=== PATIENT | female | born 1945 | race Caucasian/White ===

== ENCOUNTER 2019-04-01 09:36 | Outpatient (CLI) | payer MEDICARE ==
--- NOTE | 2019-04-01 10:39 | MRI ---
Exam: MRI cervical spine without contrast HISTORY: Cervical radiculopathy. Cervical pain and stiffness x3.5 years.. COMPARISON: 09/11/2015; 04/06/2018 at the [facility] FINDINGS: Appropriate T1 marrow signal intensity of the cervical vertebra. Cervical spine vertebral body heigh t is maintained. No fracture. No significant STIR hyperintensity to suggest vertebral body edema or ligamentous injury Visualized brain parenchyma, cervicomedullary junction, cervical cord and the upper thoracic cord hav e a normal size and signal intensity. C2-C3: Central disc protrusion effaces the midline subarachnoid space. There is contact upon the midl ine cervical cord, without cord signal abnormality. Stable mild central canal stenosis. Bilaterally the neural foramina are patent C3-C4: Central disc protrusion effaces the midline subarachnoid space. There is contact upon the midl ine cervical cord, without cord signal hyperintensity. Stable mild central canal stenosis. Bilaterally the neural foramina are patent. C4-C5: Broad-based disc osteophyte complex effaces the ventral subarachnoid space. Minimal contact up on the cervical cord without cord signal abnormality. Mild central canal stenosis. Moderate bilateral neural foraminal narrowing due to uncovertebral hypertrophy. C5-C6: Broad-based disc osteophyte complex with a central component. Subarachnoid space is effaced. T here is deformity of the central and left aspect of the cervical or. Moderate central canal stenosis. No cord hyperintensity. Moderate bilateral neural foraminal narrowing due to uncovertebral hypertrophy. C6-C7: Broad-based disc osteophyte complex effaces subarachnoid space. Mild deformity the cervical co rd, without cord hyperintensity. Moderate central canal stenosis. Moderate right and left foraminal narrowing due to uncovertebral hypertrophy C7-T1: No significant central canal stenosis or significant neural foraminal narrowing IMPRESSION: Multilevel degenerative disease cervical spine as described above. Compared to the previous examinat ion, the degree of central canal stenosis and neural foraminal narrowing are essentially similar.
--- NOTE | 2019-04-01 11:27 | MRI ---
MRI LUMBAR SPINE NONCONTRAST: HISTORY: Lumbar spondylolisthesis. Chronic low back pain x3.5 years. Numbness and tingling in the right leg. COMPARISON: 03/18/2012. FINDINGS: Appropriate T1 marrow signal intensity of the lumbar vertebra. Lumbar spine vertebral body height is maintained. No fracture. No significant STIR hyperintensity to suggest vertebral body edema or ligamentous injury. There does appear to be STIR hyperintensity involving the left pedicle at L5 and possibly S1. There also appears be STIR hyperintensity involving the right pedicle at L4. Abnormal signal intensity of the pedicles is similar to the previous examination at L5 but appears to have pro gressed at L4 and S1. Edema likely due to mechanical stresses. Appropriate signal intensity of the paraspinal muscles. Multiple T2 hyperintensities in the renal cortices compatible with cortical cysts. Conus medullaris terminates at the mid L1 level. Spondylolisthesis: 4.2 mm of anterolisthesis of L4 upon L5 without associated spondylolysis. T12-L1:No significant central canal stenosis or significant neural foraminal narrowing. L1-L2:No significant posterior disc abnormality. No significant central canal stenosis or significant neural foraminal narrowing. L2-L3:Adequate disc hydration. No significant posterior disc abnormality. No significant central grover l stenosis or significant neural foraminal narrowing. L3-L4:Adequate disc hydration. Left and right paracentral disc bulges along with ligamentum flavum th ickening and facet hypertrophy result in mild central canal stenosis. Moderate right foraminal narrowing. Left neural foramen is patent. L4-L5:Adequate disc hydration. Broad-based disc bulge, ligament flavum thickening and facet hypertrop hy result in moderate central canal stenosis. Bilaterally, neural foramina are patent. L5-S1:Adequate disc hydration. No significant posterior disc abdomen body. Ligament flavum thickening and facet hypertrophy are present. No significant central canal stenosis. Mild bilateral neural foraminal narrowing. IMPRESSION: 1. Degenerative changes lumbar spine as described above. 2. Grade 1 anterolisthesis of L4 upon L5. 3. Edematous change in the pedicles at L4, L5 and S1 likely representing changes from stress reaction due to degenerative change. Transcribed Date/Time: 04/01/2019 12:31 PM
--- NOTE | 2019-04-01 12:38 | RAD ---
FOUR VIEWS OF THE LUMBAR SPINE: DATE: 04/01/2019. COMPARISON: None. HISTORY: Lumbar spondylolisthesis, back pain. FINDINGS: Frontal imaging demonstrates intact pedicles throughout the lumbar spine. The neutral lateral exam d emonstrates multilevel facet hypertrophy at L3-4, L4-5, and L5-S1. There is anterolisthesis on the n eutral imaging at L4-5 measuring approximately 8 mm. On flexion imaging, the anterolisthesis at L4-5 measures 9-10 mm and on extension imaging the anterolisthesis at L4-5 measures approximately 5 mm. No acute fracture is seen. IMPRESSION: Multilevel lower lumbar spine degenerative change. There is anterolisthesis of L4 on L5 measuring up to 9-10 mm upon flexion. POS: OFF
== END 2019-04-01 09:37 | disposition home or self-care (01) ==
LOC: BICMRI 09:36
PROVIDERS: ATTEND Neurological Surgery
DX: M43.16 Spondylolisthesis, lumbar region (principal); M47.816 Spondylosis without myelopathy or radiculopathy, lumbar region; M50.10 Cervical disc disorder with radiculopathy, unspecified cervical region; M48.02 Spinal stenosis, cervical region
CPT/HCPCS: 72120; 72141; 72148

== ENCOUNTER 2019-05-03 05:56 | Inpatient (IN) | payer MEDICARE ==
[2019-05-02 12:24] VITALS: BMI 30.7
[2019-05-03] MEDS ORDERED: Sodium Chloride 0.9% 10 ML ONE (06:26)
[2019-05-03] MEDS ORDERED: Fentanyl 100 MCG/2 ML VIAL ONE ×4 (06:40→09:52)
[2019-05-03 06:42] LABS: Hemoglobin 13.9 g/dL (12.0-16.0); Mean Corpuscular HGB CONC 33.3 g/dL (32.0-36.0); Mean Corpuscular Hemoglobin 30.4 pg (27.0-31.0); Mean Corpuscular Volume 91.2 fL (78.0-98.0); Mean Platelet Volume 7.7 fL (7.4-10.4); Platelet Count 272 thou/uL (130-400); RBC Distribution Width 12.2 % (11.5-14.5); Red Blood Cell (RBC) Count 4.58 mill/uL (4.20-5.40)
[2019-05-03 07:01] LABS: Anion Gap 11 mmol/L (10-20); BUN (Urea Nitrogen) 15 mg/dL (9.8-20.1); Calc. Creatinine Clearance 80 mL/min (70-130); Calcium 9.2 mg/dL (7.8-10.44); Carbon Dioxide 26 mmol/L (23-31); Chloride 106 mmol/L (98-107); Estimated GFR-MDRD 66; Glucose 110 mg/dL (83-110); Potassium 4.1 mmol/L (3.5-5.1); Sodium 139 mmol/L (136-145)
[2019-05-03] MEDS ORDERED: HYDROmorphone 2 MG/ML VIAL ONE (08:34)
[2019-05-03] MEDS ORDERED: HYDROmorphone 2 MG/ML VIAL SLOW IVP PRN (08:43)
[2019-05-03] MEDS ORDERED: Morphine Sulfate 2 MG/ML SYRINGE SLOW IVP PRN (08:43)
[2019-05-03] MEDS ORDERED: Ondansetron HCl/PF 4 MG/2 ML Vial IVP PRN (08:43)
[2019-05-03] MEDS ORDERED: Promethazine HCl 25 MG/ML VIAL IM PRN ×2 (08:43→16:45)
[2019-05-03] MEDS ORDERED: Promethazine HCl 25 MG/ML VIAL SLOW IVP PRN (08:43)
[2019-05-03] MEDS ORDERED: Meperidine HCl/PF 25 MG/ML VIAL SLOW IVP PRN (08:43)
[2019-05-03] MEDS ORDERED: PACU-Morphine 4MG/ML VIAL SLOW IVP PRN (08:43)
[2019-05-03] MEDS ORDERED: HYDROmorphone 0.5 MG/0.5 ML SYRINGE ONE (10:10)
[2019-05-03] MEDS ORDERED: tiZANidine HCl 4 MG TAB PO PRN (11:57)
[2019-05-03] MEDS ORDERED: HYDROcodone/Acetaminophen 7.5/325 mg Tablet PO PRN (11:58)
[2019-05-03] MEDS ORDERED: traMADol HCl 50 MG TAB PO PRN ×3 (11:59→16:45)
--- NOTE | 2019-05-03 14:45 | OP ---
DATE OF PROCEDURE: 05/03/2019 CATEGORY DIRECTOR: Jacqui Camacho PA-C. PROCEDURES PERFORMED: Posterior lumbar laminectomy L4-L5, posterolateral arthrodesis, pedicle screw instrumentation, demineralized bone matrix, and local morselized autograft L4-L5. DESCRIPTION OF PROCEDURE: The patient was brought to the operating room and intubated. She was rolled in a prone position on gel-filled chest rolls. An incision was made exposing L4-L5 and the level was confirmed by x-ray. We performed modest bilateral L4-L5 laminectomies. Next, we placed pedicle screws at L4 and L5 bilaterally using lateral fluoroscopic guidance and the position was confirmed with rotational x-ray. The enrrique was then secured between the screws, connected by nuts, which were final tightened. The wound was then extensively irrigated. MAC hemostasis was secured. A combination of demineralized bone matrix and local morselized autograft was laid over the lamina and posterolateral surfaces for the purpose of arthrodesis. Vancomycin powder was applied, and the wound was then closed in anatomic layers. Job ID: [id number]
[2019-05-03] MEDS ORDERED: diphenhydrAMINE 50 MG/ML VIAL IVP PRN (16:45)
[2019-05-03] MEDS ORDERED: Morphine 4 MG/ML VIAL SLOW IVP PRN (16:45)
[2019-05-03] MEDS ORDERED: Promethazine HCl 12.5 MG SUPP PR PRN (16:45)
[2019-05-03] MEDS ORDERED: HYDROcodone/Acetaminophen 10/325 mg Tablet PO PRN (16:45)
[2019-05-03] MEDS ORDERED: Mag-Al 1200 mg/1200 mg/30 ML UDCUP PO PRN (16:45)
[2019-05-03] MEDS ORDERED: Milk Of Magnesia 30 ML UDCUP PO PRN (16:45)
[2019-05-03] MEDS ORDERED: diphenhydrAMINE 25 MG CAP PO PRN (16:45)
[2019-05-03] MEDS ORDERED: Promethazine 25 MG TAB PO PRN (16:45)
[2019-05-03] MEDS ORDERED: Morphine 2 MG/ML SYRINGE SLOW IVP PRN (16:48)
[2019-05-03] MEDS ORDERED: Ondansetron PF 4 MG/2 ML Vial SLOW IVP PRN (16:49)
[2019-05-03] MEDS: CEFAZOLIN 2 GM in Premix Bag 1 BAG IVPB SCH (17:54)
[2019-05-03] MEDS: tiZANidine HCl 4 MG TAB PO PRN (19:16)
[2019-05-03] MEDS: HYDROcodone/Acetaminophen 10/325 mg Tablet PO PRN (19:34)
[2019-05-03] MEDS ORDERED: DULoxetine 60 MG CAP PO SCH (21:00)
[2019-05-04] MEDS: CEFAZOLIN 2 GM in Premix Bag 1 BAG IVPB SCH (01:44)
[2019-05-04] MEDS: HYDROcodone/Acetaminophen 10/325 mg Tablet PO PRN ×2 (02:34→06:31)
[2019-05-04] MEDS: tiZANidine HCl 4 MG TAB PO PRN (06:31)
[2019-05-04 08:03] VITALS: BP 145/65; TEMP 99.1
[2019-05-04] MEDS ORDERED: Atenolol 25 MG TAB PO SCH (09:00)
[2019-05-04] MEDS ORDERED: Calcium Carbonate 500 MG TAB PO SCH (09:00)
[2019-05-04] MEDS ORDERED: Citalopram 20 MG TAB PO SCH (09:00)
--- NOTE | 2019-05-04 15:12 | DIS ---
DATE OF ADMISSION: 05/03/2019 DATE OF DISCHARGE: 05/04/2019 HISTORY AND HOSPITAL COURSE: The patient is a 73-year-old female, recently evaluated in our office for progressive back pain and claudicatory symptoms. The patient was found to have significant stenosis at L4-L5 and underwent L4-L5 decompression and fusion on 05/03/2019. Following the surgery, she was transitioned to the Med/Surg floor, where pain has been well controlled with p.o. medications. She is tolerating regular diet, and she is voiding appropriately. She has been ambulating short distance back and forth to the bathroom and in the halls. The patient is sitting up comfortably, awake, alert, in no acute distress. She has free active range of motion of all extremities. No focal motor weakness. Her incision is clean, dry, and intact. We will plan to dismiss the patient to home. I have advised her to hold her aspirin x2 weeks. She has been provided scripts for [place], Zanaflex, and Keflex. We will follow up in 2 weeks, provided instructions for home. Job ID: [id number]
== END 2019-05-04 09:31 | disposition home or self-care (01) | DRG 460 ==
LOC: SURG A 05:56 → 3SE 11:35 → EDSTATUS 16:15
PROVIDERS: ADMIT Neurological Surgery; ATTEND Neurological Surgery
PROC: 0SG0071 Fusion of Lumbar Vertebral Joint with Autologous Tissue Substitute, Posterior Approach, Posterior Column, Open Approach (ICD-10-PCS; principal; 2019-05-03)
DX: M48.061 Spinal stenosis, lumbar region without neurogenic claudication (principal); Z79.82 Long term (current) use of aspirin; Z79.899 Other long term (current) drug therapy
CPT/HCPCS: 36415; 76000; 80048; 85027; 93005; 93010; J0690; J1170; J2270; J3010; J3370; J3490

== ENCOUNTER 2019-05-17 14:50 | Outpatient (CLI) | payer MEDICARE ==
--- NOTE | 2019-05-17 15:29 | RAD ---
Exam: 2 views lumbar spine HISTORY: Spinal listhesis at L4-L5. Status post fusion surgery COMPARISON: 04/01/2019 FINDINGS: Interval placement of bilateral transpedicular screws at L4 and L5. No perihardware lucency. 5.6 mm of anterolisthesis of L4 upon L5. No additional levels of spondylolisthesis. Stable Emmanuelle change at L3-L4 IMPRESSION: Grade 1 anterolisthesis of L4 upon L5. The degree of anterolisthesis has not increased si nce the previous examination. There is evidence of fusion at the L4-L5 level.
== END 2019-05-17 14:51 | disposition home or self-care (01) ==
LOC: TBSIIMAG 14:50
PROVIDERS: ATTEND Neurological Surgery
DX: M43.16 Spondylolisthesis, lumbar region (principal); Z98.1 Arthrodesis status
CPT/HCPCS: 72100

== ENCOUNTER 2019-06-28 12:14 | Outpatient (CLI) | payer MEDICARE ==
--- NOTE | 2019-06-28 13:23 | RAD ---
XR Lumbar Spine 2 Or 3 View History: Lumbar spondylolisthesis M a 43.16 Comparison: None. Findings: Posterior spinal fusion hardware and interconnecting rods at L4-L5. Listhesis has not joyner ed. No acute fracture or malalignment. Moderate L3/L4 degenerative disc space narrowing. Mild L2/L3 degen erative disc narrowing. Moderate sclerosis of the SI joints. Impression: Similar examination of the lumbar spine. No acute abnormality.
== END 2019-06-28 12:15 | disposition home or self-care (01) ==
LOC: BICRAD 12:14
PROVIDERS: ATTEND Neurological Surgery
DX: M43.16 Spondylolisthesis, lumbar region (principal)
CPT/HCPCS: 72100

== ENCOUNTER 2019-07-25 08:32 | Observation (INO) | payer MEDICARE ==
[2019-07-22 11:38] VITALS: BMI 29.9
[2019-07-25] MEDS ORDERED: Ondansetron PF 4 MG/2 ML Vial ONE (09:43)
[2019-07-25] MEDS ORDERED: Glycopyrrolate 0.2 MG/ML 5 ML SYRINGE ONE (09:43)
[2019-07-25] MEDS ORDERED: Lidocaine 1% PF 5 ML VIAL ONE (09:43)
[2019-07-25] MEDS ORDERED: PROPOFOL 200 MG/20 ML VIAL ONE (09:43)
[2019-07-25] MEDS ORDERED: Rocuronium Bromide 10 MG/ML (10ML VIAL) ONE (09:43)
[2019-07-25 10:21] LABS: Hemoglobin 14.2 g/dL (12.0-16.0); Mean Corpuscular HGB CONC 32.6 g/dL (32.0-36.0); Mean Corpuscular Hemoglobin 29.9 pg (27.0-31.0); Mean Corpuscular Volume 91.7 fL (78.0-98.0); Mean Platelet Volume 7.7 fL (7.4-10.4); Platelet Count 351 thou/uL (130-400); RBC Distribution Width 12.7 % (11.5-14.5); Red Blood Cell (RBC) Count 4.75 mill/uL (4.20-5.40); White Blood Cell (WBC) Count 15.9 thou/uL (4.8-10.8)
[2019-07-25 10:25] LABS: Anion Gap 14 mmol/L (10-20); BUN (Urea Nitrogen) 13 mg/dL (9.8-20.1); Calc. Creatinine Clearance 94 mL/min (70-130); Calcium 9.5 mg/dL (7.8-10.44); Carbon Dioxide 28 mmol/L (23-31); Chloride 104 mmol/L (98-107); Estimated GFR-MDRD 81; Glucose 96 mg/dL (83-110); Potassium 4.2 mmol/L (3.5-5.1); Sodium 142 mmol/L (136-145)
[2019-07-25] MEDS ORDERED: Fentanyl 100 MCG/2 ML VIAL ONE ×5 (10:26→16:57)
[2019-07-25] MEDS ORDERED: Sodium Chloride 0.9% 10 ML ONE (11:32)
[2019-07-25] MEDS ORDERED: Lidocaine 2% Jelly 5 ML TUBE ONE (12:06)
--- NOTE | 2019-07-25 12:16 | OP ---
DATE OF PROCEDURE: 07/25/2019 SENIOR SPECIALIST: Jacqui Camacho PA-C PROCEDURES PERFORMED: Anterior cervical diskectomy C5-C6 and C6-C7, interbody arthrodesis, intervertebral biomechanical device, local morselized autograft, demineralized bone matrix, anterior titanium instrumentation C5 through C7. DESCRIPTION OF PROCEDURE: The patient was brought to the operating room and intubated. She was positioned supine with head in modest extension on a gel-filled donut. An incision was made in the right precervical area and dissected medial to the sternocleidomastoid muscle, identified the anterior cervical spinal, and the level was confirmed by x-ray. We debrided the anterior osteophytes, placed distraction across the disk spaces, and found the bones to be extremely soft. We performed diskectomies at C5-C6 and C6-C7. The bony endplates were then decorticated for the purpose of arthrodesis and appropriate-sized intervertebral biomechanical PEEK device was brought into the field, filled with demineralized bone matrix and local morselized autograft, and tapped in place securely at C5-C6 and C6-C7. Next, an anterior plate was brought into the field and secured to C5, C6, and C7 using two 14-mm screws at each level. The wound was then extensively irrigated and MAC hemostasis was secured. The wound was closed in anatomic layers over drain. Job ID: [id number]
[2019-07-25] MEDS ORDERED: HYDROcodone/Acetaminophen 10/325 mg Tablet PO PRN (14:06)
[2019-07-25] MEDS ORDERED: traMADol HCl 50 MG TAB PO PRN ×2 (14:06)
[2019-07-25] MEDS ORDERED: Promethazine 25 MG TAB PO PRN (14:06)
[2019-07-25] MEDS ORDERED: tiZANidine HCl 4 MG TAB PO PRN (14:06)
[2019-07-25] MEDS ORDERED: Milk Of Magnesia 30 ML UDCUP PO PRN (14:06)
[2019-07-25] MEDS ORDERED: Promethazine HCl 12.5 MG SUPP PR PRN (14:06)
[2019-07-25] MEDS ORDERED: Promethazine HCl 25 MG/ML VIAL IM PRN (14:06)
[2019-07-25] MEDS ORDERED: Morphine 4 MG/ML VIAL SLOW IVP PRN (14:06)
[2019-07-25] MEDS ORDERED: diphenhydrAMINE 50 MG/ML VIAL IVP PRN (14:06)
[2019-07-25] MEDS ORDERED: diphenhydrAMINE 25 MG CAP PO PRN (14:06)
[2019-07-25] MEDS ORDERED: Mag-Al 1200 mg/1200 mg/30 ML UDCUP PO PRN (14:06)
[2019-07-25] MEDS ORDERED: Morphine 2 MG/ML SYRINGE SLOW IVP PRN (14:06)
[2019-07-25] MEDS ORDERED: Ondansetron PF 4 MG/2 ML Vial IVP PRN (14:06)
[2019-07-25] MEDS: Sodium Chloride 0.9% 1,000 ML IV SCH (18:04)
[2019-07-25] MEDS: HYDROcodone/Acetaminophen 10/325 mg Tablet PO PRN (19:59)
[2019-07-25] MEDS ORDERED: DULoxetine 60 MG CAP PO SCH (21:00)
[2019-07-25] MEDS: CEFAZOLIN 2 GM in Premix Bag 1 BAG IVPB SCH (22:23)
[2019-07-26] MEDS: HYDROcodone/Acetaminophen 10/325 mg Tablet PO PRN ×2 (04:22→08:29)
[2019-07-26] MEDS: Sodium Chloride 0.9% 1,000 ML IV SCH (04:23)
[2019-07-26] MEDS: CEFAZOLIN 2 GM in Premix Bag 1 BAG IVPB SCH (05:34)
[2019-07-26] MEDS ORDERED: Tamsulosin HCl 0.4 MG CAP PO SCH (06:00)
[2019-07-26 07:19] VITALS: BP 151/68; TEMP 98.7
[2019-07-26] MEDS ORDERED: Multivit, Therapeutic 1 TAB PO SCH (09:00)
[2019-07-26] MEDS ORDERED: Calcium Carbonate 500 MG TAB PO SCH (09:00)
[2019-07-26] MEDS ORDERED: Atenolol 25 MG TAB PO SCH (09:00)
[2019-07-26] MEDS ORDERED: Citalopram 20 MG TAB PO SCH (09:00)
[2019-07-26] MEDS ORDERED: Prevnar 13-Val Conj/PF 0.5 ML SYRINGE IM ONE (09:00)
--- NOTE | 2019-07-26 10:29 | DIS ---
DATE OF ADMISSION: 07/25/2019 DATE OF DISCHARGE: 07/26/2019 HOSPITAL COURSE: The patient is a 73-year-old female, recently evaluated in our office for progressive neck pain, found to have significant degenerative changes from C5 to C7. She underwent C5 through C7 ACDF on 07/25/2018. Following the surgery, she was transitioned to the Med/Surg floor, where her pain has been well controlled with p.o. medications, she has been tolerating a regular diet, and she has been voiding appropriately. She has been ambulating easily back and forth to the bathroom. Her incision has remained clean, dry, and intact. She did have a ASHVIN drain placed intraoperatively with only 10 mL out overnight. This was removed on postoperative day #1. Exam on postoperative day #1, the patient is resting comfortably. No acute distress. Her incision is clean, dry, and intact. She has free active range of motion of all extremities. No focal motor weakness. There is a small amount of serosanguineous fluid in the ASHVIN bulb. We will plan to remove her ASHVIN drain and dismiss to home. I have discussed home care precautions. We will follow up with the patient in 2 weeks. Job ID: [id number]
--- NOTE | 2019-07-26 11:07 | EKG ---
Test Reason : PREOP Blood Pressure : / mmHG Vent. Rate : 058 BPM Atrial Rate : 058 BPM P-R Int : 176 ms QRS Dur : 082 ms QT Int : 444 ms P-R-T Axes : 063 -11 046 degrees QTc Int : 435 ms Sinus bradycardia Septal infarct , age undetermined Abnormal ECG When compared with ECG of 03-MAY-2019 06:48, No significant change was found Confirmed by DR. Umm SCHUMACHER ([id number]) on 07/26/2019 11:06:39 AM Referred By: SARAH Confirmed By:DR. Umm SCHUMACHER
== END 2019-07-26 09:45 | disposition home or self-care (01) ==
LOC: SDC 08:32 → SURG A 17:24
PROVIDERS: ADMIT Neurological Surgery; ATTEND Neurological Surgery
PROC: 0RG20A0 Fusion of 2 or more Cervical Vertebral Joints with Interbody Fusion Device, Anterior Approach, Anterior Column, Open Approach (ICD-10-PCS; principal; 2019-07-25)
PROC: 0RT30ZZ Resection of Cervical Vertebral Disc, Open Approach (ICD-10-PCS; 2019-07-25)
DX: M47.22 Other spondylosis with radiculopathy, cervical region (principal); I10 Essential (primary) hypertension; Z79.82 Long term (current) use of aspirin; Z79.899 Other long term (current) drug therapy; Z88.8 Allergy status to other drugs, medicaments and biological substances
CPT/HCPCS: 20930; 20936; 22551; 22552; 22853 ×2; 76000; 80048; 85027; 93005; 96366 ×2; 96375; C1713 ×2; C1776; G0378 ×2; 36415; 93010; J0690; J2001; J2405; J2704; J3010; J3490

== ENCOUNTER 2019-08-11 10:50 | Outpatient (CLI) | payer MEDICARE ==
--- NOTE | 2019-08-11 11:21 | RAD ---
THREE VIEW CERVICAL SPINE: INDICATION: History of prior surgery. COMPARISON: None. FINDINGS: There is an ACDF spanning C5-C7. The instrumentation projects in the expected position. There is mild retrolisthesis of C4 on C5. There is moderate multilevel disc degenerative facet osteoarthritic change. Lateral masses are symmetric. Prevertebral soft tissues are normal appearing. Lung apices are clear. IMPRESSION: Postoperative cervical spine. Multilevel spondylosis of the cervical spine. Mild retrolisthesis of C4 -C5. Transcribed Date/Time: 08/11/2019 11:29 AM
== END 2019-08-11 10:51 | disposition home or self-care (01) ==
LOC: TBSIIMAG 10:50
PROVIDERS: ATTEND Neurological Surgery
DX: M47.22 Other spondylosis with radiculopathy, cervical region (principal); M43.12 Spondylolisthesis, cervical region; Z98.890 Other specified postprocedural states
CPT/HCPCS: 72040

== ENCOUNTER 2020-01-04 10:40 | Outpatient (CLI) | payer MEDICARE ==
--- NOTE | 2020-01-04 11:03 | RAD ---
Exam: 3 views cervical spine HISTORY: ACDF. Follow-up exam Comparison 08/11/2019 FINDINGS: Redemonstration of a anterior fusion plate with transvertebral body screw at C5, C6 and C7. No perihardware lucency. Stable prosthesis at the C5-C6 and C6-C7 disc spaces Stable grade 1 retrolisthesis of C3 upon C4 Cervical spine vertebral body heights are maintained. There is no fracture. No prevertebral soft tissue swelling Predental space is normal In the AP projection, no malalignment On the open-mouth projection, limiting evaluation of the lateral masses of C1 and C2 as well as the o dontoid process IMPRESSION: Uncomplicated and essentially stable cervical fusion
== END 2020-01-04 10:41 | disposition home or self-care (01) ==
LOC: TBSIIMAG 10:40
PROVIDERS: ATTEND Neurological Surgery
DX: M48.02 Spinal stenosis, cervical region (principal); Z98.1 Arthrodesis status
CPT/HCPCS: 72040

== ENCOUNTER 2020-05-09 07:22 | Day surgery (SDC) | payer MEDICARE ==
[2020-05-08 14:45] VITALS: BMI 29.9
[2020-05-09 08:01] VITALS: BP 162/77; TEMP 98.6
--- NOTE | 2020-05-09 09:36 | CT ---
EXAM: CT cervical spine postmyelogram PROVIDED CLINICAL HISTORY: Radiculopathy. Patient complains of neck pain and left arm pain. TECHNIQUE: Contiguous axial CT images are obtained through the cervical spine from the skull base to the T3-4 le richard. Sagittal and coronal reformatted images are provided. COMPARISON: None FINDINGS: There is a small hypodense nodule right lobe of the thyroid gland measuring 8 mm. Follow-up thyroid u ltrasound is recommended. Vascular calcifications are seen in the carotid arteries. Mild chronic lung changes are seen in each lung apex with calcified granuloma posterior left upper lobe. There are postoperative changes of the cervical spine related to anterior cervical fusion with an ant erior plate and screws transfixing the C5-C7 levels. Intradiscal prostheses are present these levels. No hardware complication is appreciated. No fracture or subluxation is seen involving the cer vical spine. C2-3 level: Central disc protrusion is present which narrows the ventral subarachnoid space and encro aches on the anterior aspect of the spinal cord without spinal cord deformity. Facet degenerative changes are seen on the left. Right neural foramen is patent with mild left-sided neural foraminal na rrowing. C3-4 level: Central disc protrusion is present which effaces the ventral subarachnoid space and encro aches on the anterior aspect of the spinal cord. Mild facet degenerative changes are present. The right neural foramen is patent, but there is mild left-sided neural foraminal narrowing. C4-5 level: Loss of intervertebral disc height with broad-based disc osteophyte complex present. This results in effacement of the ventral subarachnoid space with encroachment on the anterior aspect of the spinal cord. Uncinate process hypertrophy and facet degenerative changes are present. Mild-to- moderate bilateral neural foraminal narrowing is present greater on the left. C5-6 level: Evidence of anterior cervical fusion. Broad-based osteophyte is present greater centrally . This results in effacement of the ventral subarachnoid space, and the central osteophyte likely contacts the left anterolateral aspect of the spinal cord without deformity. Moderate right and moder ate to severe left-sided neural foraminal narrowing is present. C6-7 level: Postoperative changes related to anterior cervical fusion. Broad-based osteophyte is pres ent which effaces the ventral subarachnoid space. There is artifact at this level, but there appears to be mild to moderate left and moderate to severe right-sided neural foraminal narrowing. Ri ght-sided neural foraminal narrowing is primarily related to osteophyte formation C7-T1 level: No disc bulge or disc herniation. Central spinal canal and neural foramina are patent. IMPRESSION: 1. Hypodense 8 mm nodule right lobe of the thyroid gland. Follow-up thyroid ultrasound is recommended . 2. Degenerative and postoperative changes cervical spine.
--- NOTE | 2020-05-09 09:44 | RAD ---
PROCEDURE: XR Myelogram Cervical Spine PROVIDED CLINICAL HISTORY: Cervical radiculopathy, neck pain. COMPARISON: None TECHNIQUE: The procedure including the risks and complications were explained to the patient, and informed conse nt was obtained. Patient was placed on the fluoroscopy table in the prone position. An area overlying the L2-3 level was marked and then meticulously prepped and draped in usual sterile fashion . The skin and subcutaneous tissues were infiltrated with buffered 1% lidocaine for local anesthesia. A 22-gauge spinal needle was advanced into the thecal sac. The inner stylette was removed with a return of clear cerebral spinal fluid. Approximately 8 mL of Omnipaque 300 contrast was instilled int o the thecal sac. The inner stylette was replaced, and the needle was removed. Dry sterile dressing was placed at puncture site. The patient was placed in a Trendelenburg position to allow contrast to flow to the level of the cerv ical spine. The patient was then transported to CT for further imaging of the cervical spine. The patient tolerated the procedure well and without immediate complication. Fluoroscopy: Time-2.3 minutes Dose-242.2 microGy meter squared FINDINGS: Technically successful cervical myelogram with lumbar puncture at the L2-3 level. Images of the cervical spine demonstrate postoperative changes related to anterior cervical fusion wi th anterior plate and screws transfixing the C5-6 and C6-7 levels. Intradiscal prostheses are present these levels. There are scattered degenerative changes in the cervical spine. No fracture or subluxation is seen. The prevertebral soft tissues are within normal limits. [employer] images of the lumbar spine are obtained demonstrating scattered osteophytes in the lumbar spine . Postoperative changes related to posterior fusion at the L4-5 level are seen with bipedicular screws and posterior rods transfixing this level. Grade 1 anterolisthesis of L4 on L5 is present. No hardware complication is seen. There are multiple punctate calcifications overlying the medial aspect of the left upper quadrant whi ch may represent calcifications in the pancreas and possibly sequela of prior pancreatitis. Postoperative changes of the pelvis are noted with radiopaque suture material seen. IMPRESSION: 1. Degenerative and postoperative changes of the cervical and lumbar spine. 2. Technically successful cervical myelogram with lumbar puncture at the L2-3 level.
[2020-05-09] MEDS ORDERED: Iopamidol-M 300 61% 15 ML VIAL ONE (13:57)
== END 2020-05-09 09:50 | disposition home or self-care (01) ==
LOC: RAD 07:22
PROVIDERS: ATTEND Neurological Surgery
PROC: B02B1ZZ Computerized Tomography (CT Scan) of Spinal Cord using Low Osmolar Contrast (ICD-10-PCS; principal; 2020-05-09)
DX: M54.12 Radiculopathy, cervical region (principal); I10 Essential (primary) hypertension; M19.90 Unspecified osteoarthritis, unspecified site; M85.80 Other specified disorders of bone density and structure, unspecified site; F17.200 Nicotine dependence, unspecified, uncomplicated; Z79.82 Long term (current) use of aspirin; Z79.899 Other long term (current) drug therapy; Z88.8 Allergy status to other drugs, medicaments and biological substances
CPT/HCPCS: 62302; 72126; Q9967

== ENCOUNTER 2021-03-29 10:02 | Outpatient (CLI) | payer MEDICARE | END 2021-03-29 10:03 | disposition home or self-care (01) | LOC: BICMAMMO 10:02 | PROVIDERS: ATTEND Internal Medicine | DX: Z12.31 Encounter for screening mammogram for malignant neoplasm of breast (principal) | CPT/HCPCS: 77063; 77067 ==

== ENCOUNTER 2021-05-02 14:29 | Inpatient (IN) | payer OTHER, MEDICARE ==
[2021-05-02 15:24] LABS: Hemoglobin 14.1 g/dL (12.0-16.0); Mean Corpuscular HGB CONC 31.8 g/dL (32.0-36.0); Mean Corpuscular Hemoglobin 29.4 pg (27.0-31.0); Mean Corpuscular Volume 92.4 fL (78.0-98.0); Platelet Count 302 thou/uL (130-400); RBC Distribution Width 12.4 % (11.5-14.5); Red Blood Cell (RBC) Count 4.79 mill/uL (4.20-5.40); White Blood Cell (WBC) Count 22.1 thou/uL (4.8-10.8)
[2021-05-02] MEDS ORDERED: Ondansetron PF 4 MG/2 ML Vial ONE (15:25)
[2021-05-02] MEDS ORDERED: Morphine 4 MG/ML VIAL ONE (15:25)
[2021-05-02 15:34] LABS: PTT 36.1 sec (22.9-36.1); Prothrombin Time 13.6 sec (12.0-14.7)
[2021-05-02 15:44] LABS: Band 1 % (5-11); Eosinophils 1 % (0-10); Lymphocytes 5 % (21-51); MDiff Complete? YES; Monocytes 3 % (0-10); Neutrophil 90 % (42-75); Platelet Morphology Comment Appears Adequate; RBC Morphology Normal
[2021-05-02 16:06] LABS: ALT (SGPT) 15 U/L (8-55); AST (SGOT) 18 U/L (5-34); Albumin 4.3 g/dL (3.4-4.8); Alkaline Phosphatase 68 U/L (40-110); Anion Gap 14 mmol/L (10-20); BUN (Urea Nitrogen) 12 mg/dL (9.8-20.1); Bilirubin, Total 0.4 mg/dL (0.2-1.2); Calc. Creatinine Clearance 0 mL/min (70-130); Calcium 9.8 mg/dL (7.8-10.44); Carbon Dioxide 26 mmol/L (23-31); Chloride 105 mmol/L (98-107); Globulin 2.7 g/dL (2.4-3.5); Glucose 105 mg/dL (83-110); Potassium 4.4 mmol/L (3.5-5.1); Sodium 141 mmol/L (136-145)
[2021-05-02 16:54] LABS: SARS-CoV-2 NAA Rapid Test Not Detected (NotDetected)
[2021-05-02] MEDS ORDERED: Dextrose 5% in Water 1,000 ML IV PRN (18:24)
[2021-05-02] MEDS ORDERED: Ondansetron ODT 4 MG TAB PO PRN (18:24)
[2021-05-02] MEDS ORDERED: traMADol HCl 50 MG TAB PO PRN (18:24)
[2021-05-02] MEDS ORDERED: Morphine 2 MG/ML VIAL SLOW IVP PRN (18:24)
[2021-05-02] MEDS ORDERED: Ondansetron PF 4 MG/2 ML Vial IVP PRN (18:24)
[2021-05-02] MEDS ORDERED: Dextrose 50% Abboject 50 ML SYRINGE SLOW IVP PRN (18:24)
[2021-05-02] MEDS ORDERED: Cyclobenzaprine 10 MG TAB PO PRN (18:24)
[2021-05-02] MEDS ORDERED: Morphine 4 MG/ML VIAL SLOW IVP PRN (18:24)
[2021-05-02] MEDS: Acetaminophen 500 MG TAB PO SCH (20:13)
[2021-05-02] MEDS: Famotidine 20 MG TAB PO SCH (20:14)
[2021-05-02] MEDS: Ibuprofen 800 MG TAB PO SCH (20:14)
[2021-05-02] MEDS: Sodium Chloride 0.9% 1,000 ML IV SCH (20:15)
[2021-05-02 21:44] VITALS: BMI 30.6
[2021-05-03] MEDS: Acetaminophen 500 MG TAB PO SCH ×6 (01:24→23:49)
[2021-05-03] MEDS: Ibuprofen 800 MG TAB PO SCH ×4 (01:43→22:14)
[2021-05-03] MEDS: Sodium Chloride 0.9% 1,000 ML IV SCH (03:26)
[2021-05-03] MEDS ORDERED: ceFAZolin 2 GM/DEX 5% 100 ML BAG ONE (06:06)
[2021-05-03 07:16] LABS: #Eosinphils 0.4 thou/uL (0.0-0.7); #Lymphocytes 1.4 thou/uL (1.20-3.40); #Monocytes 0.5 thou/uL (0.11-0.59); #Neutrophils 11.3 thou/uL (1.40-6.50); %Basophils 0.4 % (0.0-1.0); %Eosinophils 2.6 % (0.0-10.0); %Lymphocytes 10.4 % (21.0-51.0); %Monocytes 3.6 % (0.0-10.0); %Neutrophils 83.1 % (42.0-75.0); Hemoglobin 12.9 g/dL (12.0-16.0); Mean Corpuscular HGB CONC 33.8 g/dL (32.0-36.0); Mean Corpuscular Volume 91.8 fL (78.0-98.0); Mean Platelet Volume 7.9 fL (7.4-10.4); Platelet Count 238 thou/uL (130-400); RBC Distribution Width 12.3 % (11.5-14.5); Red Blood Cell (RBC) Count 4.15 mill/uL (4.20-5.40); White Blood Cell (WBC) Count 13.6 thou/uL (4.8-10.8)
[2021-05-03] MEDS ORDERED: CEFAZOLIN 2 GM in Premix Bag 1 BAG IVPB SCH (07:30)
[2021-05-03] MEDS ORDERED: Ketamine 50 MG/ML (10ML VIAL) ONE (07:34)
[2021-05-03] MEDS ORDERED: Fentanyl 100 MCG/2 ML VIAL ONE ×3 (07:34→10:28)
[2021-05-03 07:38] LABS: Anion Gap 12 mmol/L (10-20); BUN (Urea Nitrogen) 15 mg/dL (9.8-20.1); Calc. Creatinine Clearance 87 mL/min (70-130); Calcium 8.3 mg/dL (7.8-10.44); Carbon Dioxide 24 mmol/L (23-31); Chloride 107 mmol/L (98-107); Glucose 103 mg/dL (83-110); Magnesium 2.1 mg/dL (1.6-2.6); Phosphorus 2.9 mg/dL (2.3-4.7); Potassium 4.2 mmol/L (3.5-5.1); Sodium 139 mmol/L (136-145)
[2021-05-03] MEDS ORDERED: Glycopyrrolate 0.2 MG/ML 5 ML SYRINGE ONE (07:58)
[2021-05-03] MEDS ORDERED: Ondansetron PF 4 MG/2 ML Vial ONE (07:58)
[2021-05-03] MEDS ORDERED: Ketorolac Tromethamine 30 MG/ML VIAL ONE (07:58)
[2021-05-03] MEDS ORDERED: PHENYLEPHRINE-NS 100 MCG/ML 10 ML SYRINGE ONE (07:58)
[2021-05-03] MEDS ORDERED: Metoprolol Tartrate 5 MG/5 ML VIAL ONE (07:58)
[2021-05-03] MEDS ORDERED: PROPOFOL 200 MG/20 ML VIAL ONE (07:58)
[2021-05-03] MEDS ORDERED: Lidocaine 1% PF 5 ML VIAL ONE (07:58)
[2021-05-03] MEDS ORDERED: Rocuronium Bromide 10 MG/ML (10ML VIAL) ONE (07:58)
[2021-05-03] MEDS ORDERED: Dexamethasone 20 MG/5 ML VIAL ONE (07:58)
[2021-05-03] MEDS ORDERED: Promethazine HCl 25 MG/ML VIAL IM PRN (09:05)
[2021-05-03] MEDS ORDERED: Promethazine HCl 25 MG/ML VIAL IVPB PRN (09:05)
[2021-05-03] MEDS ORDERED: HYDROmorphone 2 MG/ML VIAL SLOW IVP PRN (09:05)
[2021-05-03] MEDS ORDERED: Ondansetron HCl/PF 4 MG/2 ML Vial IVP PRN (09:05)
[2021-05-03] MEDS: Atenolol 25 MG TAB PO SCH (12:01)
[2021-05-03] MEDS: Famotidine 20 MG TAB PO SCH ×2 (12:01→20:41)
[2021-05-03] MEDS: CEFAZOLIN 2 GM, Admixture Fee 1 EACH in Sodium Chloride 0.9% 100 ML IVPB SCH ×2 (14:00→22:41)
[2021-05-03] MEDS: DULoxetine 60 MG CAP PO SCH (20:40)
[2021-05-03] MEDS: traMADol HCl 50 MG TAB PO PRN (20:41)
[2021-05-04] MEDS: Acetaminophen 500 MG TAB PO SCH ×3 (05:22→18:29)
[2021-05-04] MEDS: Ibuprofen 800 MG TAB PO SCH ×3 (05:22→21:31)
[2021-05-04] MEDS: CEFAZOLIN 2 GM, Admixture Fee 1 EACH in Sodium Chloride 0.9% 100 ML IVPB SCH (05:23)
[2021-05-04 05:41] LABS: #Basophils 0.1 thou/uL (0.0-0.2); #Eosinphils 0.3 thou/uL (0.0-0.7); #Lymphocytes 2.4 thou/uL (1.20-3.40); #Monocytes 0.7 thou/uL (0.11-0.59); %Basophils 0.4 % (0.0-1.0); %Lymphocytes 17.8 % (21.0-51.0); %Monocytes 4.9 % (0.0-10.0); %Neutrophils 74.9 % (42.0-75.0); Mean Corpuscular HGB CONC 33.4 g/dL (32.0-36.0); Mean Corpuscular Hemoglobin 31.2 pg (27.0-31.0); Mean Corpuscular Volume 93.3 fL (78.0-98.0); Mean Platelet Volume 8.2 fL (7.4-10.4); Platelet Count 197 thou/uL (130-400); RBC Distribution Width 12.1 % (11.5-14.5); Red Blood Cell (RBC) Count 3.52 mill/uL (4.20-5.40); White Blood Cell (WBC) Count 13.4 thou/uL (4.8-10.8)
[2021-05-04] MEDS: Atenolol 25 MG TAB PO SCH (09:03)
[2021-05-04] MEDS: Famotidine 20 MG TAB PO SCH ×2 (09:03→21:31)
[2021-05-04] MEDS: traMADol HCl 50 MG TAB PO PRN (21:30)
[2021-05-04] MEDS: Aspirin 81 mg Enteric Coated Tablet PO SCH (21:31)
[2021-05-04] MEDS: DULoxetine 60 MG CAP PO SCH (21:31)
[2021-05-05] MEDS: Acetaminophen 500 MG TAB PO SCH ×5 (00:56→23:38)
[2021-05-05] MEDS: Ibuprofen 800 MG TAB PO SCH ×3 (05:23→19:43)
[2021-05-05 05:53] LABS: #Eosinphils 0.5 thou/uL (0.0-0.7); #Lymphocytes 2.5 thou/uL (1.20-3.40); #Monocytes 0.6 thou/uL (0.11-0.59); #Neutrophils 6.9 thou/uL (1.40-6.50); %Basophils 0.4 % (0.0-1.0); %Eosinophils 4.6 % (0.0-10.0); %Lymphocytes 23.8 % (21.0-51.0); %Monocytes 5.7 % (0.0-10.0); %Neutrophils 65.6 % (42.0-75.0); Mean Corpuscular HGB CONC 32.4 g/dL (32.0-36.0); Mean Corpuscular Volume 92.8 fL (78.0-98.0); Mean Platelet Volume 8.3 fL (7.4-10.4); Platelet Count 206 thou/uL (130-400); RBC Distribution Width 12.3 % (11.5-14.5); Red Blood Cell (RBC) Count 3.65 mill/uL (4.20-5.40); White Blood Cell (WBC) Count 10.6 thou/uL (4.8-10.8)
[2021-05-05] MEDS: Aspirin 81 mg Enteric Coated Tablet PO SCH ×2 (08:06→19:45)
[2021-05-05] MEDS: Famotidine 20 MG TAB PO SCH ×2 (08:06→19:45)
[2021-05-05] MEDS: Atenolol 25 MG TAB PO SCH ×2 (08:06→19:44)
[2021-05-05] MEDS ORDERED: Enoxaparin Sodium 40 MG/0.4 ML SYRINGE SC SCH (09:00)
[2021-05-05] MEDS ORDERED: traMADol HCl 50 MG TAB PO PRN (10:41)
[2021-05-05] MEDS ORDERED: hydrALAZINE 20 MG/ML VIAL SLOW IVP PRN (10:46)
[2021-05-05] MEDS ORDERED: Magnesium Citrate 300 ML BOT PO SCH (11:00)
[2021-05-05] MEDS: traMADol HCl 50 MG TAB PO SCH ×3 (11:22→23:39)
[2021-05-05] MEDS ORDERED: Loperamide HCl 1 MG/7.5 ML UDCUP PO PRN (18:02)
[2021-05-05] MEDS: DULoxetine 60 MG CAP PO SCH (19:45)
[2021-05-06] MEDS: Acetaminophen 500 MG TAB PO SCH ×2 (05:16→11:55)
[2021-05-06] MEDS: Ibuprofen 800 MG TAB PO SCH ×2 (05:17→11:55)
[2021-05-06] MEDS: traMADol HCl 50 MG TAB PO SCH ×2 (05:18→11:56)
[2021-05-06] MEDS: Atenolol 25 MG TAB PO SCH (09:01)
[2021-05-06] MEDS: Famotidine 20 MG TAB PO SCH (09:02)
[2021-05-06] MEDS: Aspirin 81 mg Enteric Coated Tablet PO SCH (09:02)
[2021-05-06 12:20] VITALS: BP 133/83; TEMP 98.8
== END 2021-05-06 13:30 | disposition home health service (06) | DRG 522 ==
LOC: ERS 14:29 → SURG A 17:03
PROVIDERS: ADMIT Specialist; ATTEND Specialist
PROC: 0SRS0JZ Replacement of Left Hip Joint, Femoral Surface with Synthetic Substitute, Open Approach (ICD-10-PCS; principal; 2021-05-03)
DX: S72.002A Fracture of unspecified part of neck of left femur, initial encounter for closed fracture (principal); J45.909 Unspecified asthma, uncomplicated; I10 Essential (primary) hypertension; F32.A Depression, unspecified; F17.210 Nicotine dependence, cigarettes, uncomplicated; F41.9 Anxiety disorder, unspecified; Z20.822 Contact with and (suspected) exposure to COVID-19; W01.0XXA Fall on same level from slipping, tripping and stumbling without subsequent striking against object, initial encounter; Y92.89 Other specified places as the place of occurrence of the external cause; Z88.8 Allergy status to other drugs, medicaments and biological substances; Z90.49 Acquired absence of other specified parts of digestive tract; Z90.89 Acquired absence of other organs; Z98.51 Tubal ligation status
CPT/HCPCS: 36415; 71045; 72170; 80048; 80053; 83735; 84100; 84484; 85025; 85610; 85730; 86850; 86900; 86901; 87086; 93005; 96374; 96375; G0390; J0690; J1100; J1885; J2270; J2405; J2704; J3010; J3490; J7050; J7620; U0002

== ENCOUNTER 2022-04-02 08:47 | Outpatient (CLI) | payer MEDICARE | END 2022-04-02 08:48 | disposition home or self-care (01) | LOC: BICMAMMO 08:47 | PROVIDERS: ATTEND Internal Medicine | DX: Z12.31 Encounter for screening mammogram for malignant neoplasm of breast (principal) | CPT/HCPCS: 77063; 77067 ==

== ENCOUNTER 2023-07-02 11:45 | Outpatient (CLI) | payer MEDICARE | END 2023-07-02 11:46 | disposition home or self-care (01) | LOC: BICMAMMO 11:45 | PROVIDERS: ATTEND Internal Medicine | DX: Z12.31 Encounter for screening mammogram for malignant neoplasm of breast (principal); Z80.3 Family history of malignant neoplasm of breast | CPT/HCPCS: 77063; 77067 ==